=== PATIENT | female | born 1995 | race Caucasian/White ===

== ENCOUNTER → 2017-08-08 19:10 | Outpatient (CLI) | payer OTHER, SELFPAY ==
[2017-08-15 11:38] LABS: HPV Reflexed? NOT INDICATED
== END ==
PROVIDERS: Visit Provider Obstetrics & Gynecology
DX: Z12.4 Encounter for screening for malignant neoplasm of cervix (principal)
CPT/HCPCS: 88175; G0145

== ENCOUNTER → 2017-11-03 16:26 | Outpatient (CLI) | payer OTHER, SELFPAY ==
--- NOTE | 2017-11-03 16:52 | US_ITS ---
STUDY: ULTRASOUND OF THE FEMALE PELVIS - COMPLETE REASON FOR EXAM: Female, 22 years old. IRREG MENSES G/U OV CYST TECHNIQUE: Transabdominal and Transvaginal TECHNICAL QUALITY: Adequate. COMPARISON: None. FINDINGS: The uterus is anteverted and is in a midline position. The uterus measures 9.2 x 5.7 x 2.9 cm. Normal uterine cervix. The endometrium measures 5.9 mm in thickness, and is hyperechoic. There is no demonstrated endometrial mass. There is no demonstrated myometrial mass. I.U.D. - The patient does not have an I.U.D. The right ovary is visualized. The right ovary measures 2.4 x 1.5 x 0.8 cm. There is no right ovarian cyst or ovarian mass. There is no visualized right adnexal mass or complex lesion. There is normal arterial and normal venous vascularity. The left ovary is visualized. The left ovary measures 4.8 x 3.8 x 2.3 cm. Simple cyst of the left ovary measuring 3 x 2.5 x 2 cm. There is no visualized left adnexal mass or complex lesion. There is normal arterial and normal venous vascularity. There is no fluid in the cul-de-sac. The pre void volume of the bladder was 560 ml. Polycystic ovary disease: No. US/Pelvic (Non ) IMPRESSION: Simple left ovarian cyst. Electronically Signed: Hugo Denson MD at 20:46 EDT , Service support ,
--- NOTE | 2017-11-03 17:18 | US_ITS ---
STUDY: ULTRASOUND OF THE FEMALE PELVIS - COMPLETE REASON FOR EXAM: Female, 22 years old. IRREG MENSES G/U OV CYST TECHNIQUE: Transabdominal and Transvaginal TECHNICAL QUALITY: Adequate. COMPARISON: None. FINDINGS: The uterus is anteverted and is in a midline position. The uterus measures 9.2 x 5.7 x 2.9 cm. Normal uterine cervix. The endometrium measures 5.9 mm in thickness, and is hyperechoic. There is no demonstrated endometrial mass. There is no demonstrated myometrial mass. I.U.D. - The patient does not have an I.U.D. The right ovary is visualized. The right ovary measures 2.4 x 1.5 x 0.8 cm. There is no right ovarian cyst or ovarian mass. There is no visualized right adnexal mass or complex lesion. There is normal arterial and normal venous vascularity. The left ovary is visualized. The left ovary measures 4.8 x 3.8 x 2.3 cm. Simple cyst of the left ovary measuring 3 x 2.5 x 2 cm. There is no visualized left adnexal mass or complex lesion. There is normal arterial and normal venous vascularity. There is no fluid in the cul-de-sac. The pre void volume of the bladder was 560 ml. Polycystic ovary disease: No. US/Transvaginal Non- IMPRESSION: Simple left ovarian cyst. Electronically Signed: Hugo Denson MD at 20:46 EDT , Service support ,
== END ==
PROVIDERS: Visit Provider Obstetrics & Gynecology
DX: N92.4 Excessive bleeding in the premenopausal period (principal); N92.6 Irregular menstruation, unspecified
CPT/HCPCS: 76830; 76856; 93976

== ENCOUNTER → 2020-03-07 | Outpatient (CLI) | payer BC, SELFPAY ==
[2020-03-07 09:34] VITALS: BMI 33.7
[2020-03-09 07:07] LABS: Chlamydia By Nucleic Acid AMP Negative (Negative)
[2020-03-09 08:43] LABS: Gonococcus By Nucleic Acid AMP Negative (Negative)
== END | disposition home or self-care (01) ==
LOC: LABSPEC 12:43
PROVIDERS: Referring Provider Nurse Practitioner Women's Health; Visit Provider Nurse Practitioner Women's Health
DX: Z11.3 Encounter for screening for infections with a predominantly sexual mode of transmission (principal)
CPT/HCPCS: 87491; 87591

== ENCOUNTER 2020-08-17 15:46 | Outpatient (RCR) | payer BC, SELFPAY ==
[2020-03-07 09:34] VITALS: BMI 33.7
== END 2020-10-10 23:59 ==
LOC: IMMUN 15:46
PROVIDERS: Referring Provider Family Medicine; Visit Provider Family Medicine
DX: Z23 Encounter for immunization (principal)
CPT/HCPCS: 0001A; 0002A; 91300

== ENCOUNTER 2021-06-11 16:17 | Outpatient (CLI) | payer BC, SELFPAY ==
[2021-06-14 16:55] LABS: HPV Reflexed? NOT INDICATED
== END 2021-06-11 23:59 | disposition home or self-care (01) ==
LOC: LABSPEC 16:18
PROVIDERS: Visit Provider Nurse Practitioner Women's Health
DX: Z12.4 Encounter for screening for malignant neoplasm of cervix (principal); R30.0 Dysuria
CPT/HCPCS: 87086; 87088; 88175; G0145

== ENCOUNTER 2021-08-14 05:29 | Day surgery (SDC) | payer BC, SELFPAY ==
[2021-08-10 13:22] LABS: Hematocrit 40.8 % (37-47); Hemoglobin 13.5 g/dL (12.0-15.0); Mean Corp Hgb Conc 33.1 g/dL (32-36); Mean Corpuscular Hgb 30.1 pg (27.0-32.0); Mean Corpuscular Volume 91.1 fL (81-99); Mean Platelet Vol. 9.8 fl (6.2-12.0); Platelet Count 311 K/mm3 (150-450); RBC Distribution Width SD 43.5 fl (35.1-43.9); Red Blood Count 4.48 M/mm3 (4.2-5.4); White Blood Count 9.2 K/mm3 (4.4-11.0)
[2021-08-10 13:55] LABS: Magnesium 2.3 mg/dL (1.6-2.6)
--- NOTE | 2021-08-13 15:46 | HP.PCM_ITS ---
History and Physical Date of Admission: 08/14/21 Date of Service: 08/01/21 MR#:[id number]: KYM BORJAS RAIRep #:[id number]:[id number] Provider:Dr. Rachel Tracey, DOAge/Sex: 25/F Location:[facility] [place]Signed Intake Vital Signs 08/01/21 08:12 Height 5 ft 5 in Weight: 214 lb 4 oz BMI 35.6 BP 130/100 H Intake Visit Reasons: consult/consent Accounts Payable Clerk Required: No Is patient in pain?: No Allergies iodine Allergy (Intermediate, Verified 08/01/21 08:12) Hives Medications cyclobenzaprine 10 mg tablet 10 mg PO TID PRN #21 tab 09/21/20 [Rx Confirmed 08/01/21] ondansetron 4 mg disintegrating tablet 4 mg PO Q4H PRN #48 tab 09/26/20 [Rx Confirmed 08/01/21] etonogestrel 0.12 mg-ethinyl estradiol 0.015 mg/24 hr vaginal ring 1 vag ring VAGINAL .COMPLEX #3 ea 06/11/21 [Rx Confirmed 08/01/21] norethindrone acetate 5 mg tablet 5 mg PO .COMPLEX #30 tab 07/09/21 [Rx Confirmed 08/01/21] medroxyprogesterone 10 mg tablet 10 mg PO DAILY #30 tab 08/01/21 [Rx Confirmed 08/01/21] Post menopausal: No Patient : No : No PFSH Medical History Dysmenorrhea Endometriosis Surgical History H/O dilation and curettage H/O laparoscopy History of hysteroscopy S/P Social History household members: significant other and children number of children: 1 current occupational status: employed current occupation: customer service and field sales representative and [employer] history of recent travel: No sexually active: Yes Smoking Status: Former smoker Electronic Cigarette Use: with nicotine alcohol intake: current alcohol intake frequency: a few times a month substance use type: does not use what type of physical activity do you participate in: aerobics and weight training seatbelt use: always do you feel safe at home: Yes additional social history: single HPI consult/consent Details: KYM BORJAS is a 25 year old who presents for a pre-op exam. Details: KYM BORJAS is a 25 year old who presents for hysterectomy consult. She has a long history of menorrhagia and dysmenorrhea. She has a known history of endometriosis which was diagnosed via laparoscopy at an outside facility. Her last ultrasound 4 years ago showed a 9 cm uterus without fibroids. The patient states that she is completed with childbearing. Her first child was born 7 years ago. This child was born via section. She states that she has seen many plumbing engineering draftsperson and told her to just get and the pain will get better. She did end up trying this recently and the pain was so intense that she aborted the . Patient has tried IUDs control pills, rings, and injections for the pain. Pregancy History 3 Elective abortions 1 Hx Para 1 Spontaneous abortions 1 Hx # Term Pregnancies Ectopic pregnancies Hx # Pregnancies Multiple births # of living children 1 Past Pregnancies Del. Date Name GA/Weeks Outcome Route Bth Weight Gen Labor Lgth Anesthesia Del [facility] Provider FOB Unknown Benji 2013 ROS Const ROS Unobtainable: All systems reviewed & are unremarkable except as noted in H Resp Resp: Reports system reviewed and no additional complaints, except as documented; Denies cough GI GI: Reports as per HPI Psych Psych: Reports system reviewed and no additional complaints, except as documented Exam Const General: cooperative, healthy appearing, comfortable and no acute distress Resp Effort & Inspection: normal respiratory effort Skin General: no rashes or lesions noted Psych Appearance: grossly normal Speech and Movement: speech and movement normal Coding Level of Care Code Off vis,est,level 4 Diagnoses Dysmenorrhea N94.6 Endometriosis determined by laparoscopy N80.9 Assessment and Plan Assessment and Plan (1) Dysmenorrhea: Status: Acute (2) Endometriosis determined by laparoscopy: Status: Acute Comment: 2019 at [place], op report scanned in Plan - Dr. Rachel Tracey, DO: plan to total robotic hysterectomy, bilateral salpingectomy, cystoscopy on 08/14 After discussing the patient's diagnosis and treatment plan options, patient wishes to proceed with surgical management. I have discussed with the patient the risks, benefits, and alternatives of the procedure which include but are not limited to risks of anesthesia, bleeding, infection, possible damage to bowel, bladder, or surrounding vasculature which could lead to additional surgery to evaluate any complications. Patient agrees to procedure and wishes to proceed. ACOG/uptodate references given for additional information regarding procedure. Plan Details Other Medications: New: medroxyprogesterone 10 mg PO DAILY 30 tabs 0RF UPDATE- I have seen the patient and performed any clinically relevant updates to the history and physical exam. Rachel Tracey,
[2021-08-14] VITALS (11 sets, daily range): BP systolic 125–150; BP diastolic 88–105; PULSE 87–128; RESP 16–18; TEMP 36.3–37.1; O2SAT 98–100; BMI 36.3
[2021-08-14] MEDS: Lactated Ringers 1,000 ML 40 ML IV (06:00)
[2021-08-14 06:05] LABS: Internal QC Validated? YES +Cl - CLEAR BKGD; Pregnancy, Urine Negative Negative
[2021-08-14] MEDS: Gabapentin 600 MG Tablet PO (06:33)
[2021-08-14] MEDS: Acetaminophen 500 MG Tablet 1000 MG PO (06:33)
[2021-08-14] MEDS: Celecoxib 200 MG Capsule 400 MG PO (06:34)
--- NOTE | 2021-08-14 07:22 | PCM.DC ---
Discharge Instructions Diet Discharge Diet: No restrictions Activity May resume sexual activity in: 6 weeks Weight Bearing Status: Full weight bearing Dressing / Incision Call your doctor if your incision/area has: Continuous Slow Oozing, Sudden Increased Bleeding, Increased Pain/ Swelling, Increased Redness and Foul Smelling Discharge Call your doctor if you observe: Fever of 101 or Higher, Using more than 1 pad per hour, Shortness of breath, Chest pain and Uncontrolled pain Suture Line Care: Avoid Pulling/Pushing and Avoid Pinching/Bending Remove Dressing in: 1 week (if present) Cleanse incision/area with: Soap & Water and Keep Dressing Clean & Dry Follow Up Care Please Follow Up With: Rachel Tracey DO When: Call to make an appointment with your doctor for a postop visit in 2 and 6 weeks Test Results: Test results from this visit will be discussed in further detail at your follow-up appointment, if applicable. Discharge Plan Admission Primary Reason for Your Visit: Hysterectomy Attending Provider: Rachel Tracey Primary Care Provider: Care Physician,Ngoc Primary Discharge Orders/Prescriptions Prescriptions: New ibuprofen 800 mg tablet 800 mg PO Q8H PRN (Reason: pain) 7 Days Qty: 30 RF: 0 oxycodone-acetaminophen [Percocet] 5-325 mg tablet 1 tab PO Q4H PRN (Reason: pain) 7 Days Qty: 30 RF: 0 Continued loratadine [Claritin] 10 mg Tablet 10 mg PO DAILY RF: 0 ondansetron 4 mg tablet,disintegrating 4 mg PO Q4H PRN (Reason: nausea and vomiting with menses) Qty: 48 RF: 2 Discontinued naproxen sodium [Aleve] 220 mg Tablet 220 mg PO BID PRN (Reason: Pain) RF: 0 medroxyprogesterone [Provera] 10 mg tablet 10 mg PO DAILY RF: 0 Referrals / Follow Up: Care Physician,No Primary [Primary Care Provider] - Disposition Disposition (needs filled in before D/C Order can be placed): Home, Self Care
--- NOTE | 2021-08-14 07:30 | HYST_PTH ---
PATIENT: KYM BORJAS RAI LOC: [facility] [place] U#:[id number] AGE/SX: 25/F ROOM: RE08/14/[address]: Dr. Rachel Tracey DO : 1995 BED: DIS: 08/14/2021 SPEC #: [id number] RECD: 08/14/21 11:07 STATUS: BRIDGETTE ULISES #: [id number] PARISA: 08/14/21 07:[address]: Rachel Tracey DEPT: SURGICAL PATHOLOGY RECD BY: Rosalva Anderson ENTERED: 08/14/21 12:26 SP TYPE: HYSTERECT OTHR DR: No Primary Care Phys Tissues: Uterus, NOS Procedures: Surgery Specimen Level V HEADER OPERATION: ERAS, total robotic hysterectomy, bilateral salpingectomy PRE-OP DIAGNOSIS: Dysmenorrhea, endometriosis TISSUE SUBMITTED: Uterus, cervix, bilateral fallopian tubes MICROSCOPIC DIAGNOSIS Uterus, cervix, bilateral fallopian tubes, hysterectomy and bilateral salpingectomy: Cervix ? mild chronic inflammation. Endometrium ? proliferative endometrium. Myometrium - no pathologic diagnosis. Bilateral fallopian tubes - no pathologic diagnosis. SJ:jessie 08/15/2021 MICROSCOPIC DESCRIPTION Slides are reviewed. GROSS DESCRIPTION Received in fixative is one container labeled with the patient's name and designated uterus. The specimen consists of a uterus with attached cervix and attached right and left fallopian tubes. The uterus with cervix measures 9.4 x 5.5 x 3.8 cm and weighs 110 gm. The ectocervix is grossly unremarkable. The cervical os is oval in contour. The endocervical canal measures 3.6 cm in length and is grossly unremarkable. The triangular endometrial cavity measures 4 x 2.5 cm. The velvety, light cedeno endometrium measures up to 0.2 cm in thickness. The myometrium measures 2 cm in average thickness and is free of mass lesions. The right and left fallopian tubes are similar in appearance with average lengths of 6 cm and average diameter of 0.5 cm and both containing normal fimbriated ends. [facility] sections are submitted in eight cassettes as follows: 1 - anterior cervix, 2 - posterior cervix, 3 & 4 - anterior uterine wall, 5 & 6 - posterior uterine wall, 7 - right fallopian tube, 8 - left fallopian tube. / AM:jessie 08/14/2021 TC:3 CPT: 92848
[2021-08-14] MEDS: Cefazolin 2 GM in 0.9% Normal Saline 100 ML IV (07:34)
[2021-08-14] MEDS: Bupivacaine 0.25% 30 ML Vial (08:30)
[2021-08-14] MEDS: Ondansetron 4 MG/2 ML Vial IV (09:00)
[2021-08-14] MEDS: Lactated Ringers 1,000 ML 100 ML IV (09:01)
--- NOTE | 2021-08-14 09:15 | OP.PCM_ITS ---
Problems Associated Problem List Diagnoses (1) Endometriosis determined by laparoscopy: (2) Dysmenorrhea: Report of Operation Date of Procedure: 08/14/21 Pre-Operative Diagnosis: Dysmenorrhea, endometriosis, failed conservative therapy Post-Operative Diagnosis: Dysmenorrhea, endometriosis, failed conservative therapy, possible intersticial cystitis Surgery/Procedure Performed:: Total robotic hysterectomy, bilateral sa lpingectomy, cystoscopy Description of Surgical Findings:: Anesthesia: General endotracheal intubation Estimated blood loss: 70cc Urine output:700cc Fluids: 1400cc Drains: None Implanted material: None Complications: None Findings: 10 cm size uterus, normal appearing ovaries and tubes. On exploration of the abdominal cavity the uterus, adnexa, bowel, and liver were found to be normal. There was noted scar tissue over the lower uterine segment/bladder and powder burn faustin on the bladder and posterior cul-de-sac consistent with endometriosis. Cystoscopy showed no evidence of leaking at approximately 250 cc of normal saline, positive ureteral orifices and jet flow are seen and no suture material was appreciated in the bladder. The bladder showed signs of possible interstitial cystitis as there were tiny areas of bleeding capillaries when the fluid was drained out of the bladder Specimens removed: Uterus and cervix, Bilateral fallopian tubes Surgeon: Rachel Tracey evp [place]: Jessica Hdz Type of Anesthesia: General Anesthesiologist: Travis Alarcon Specimen's removed: Uterus, cervix, bilateral fallopian tubes Drains: none Estimated Blood Loss (mL): 70cc Fluids Replaced: 1400cc Description of Procedure: Reason for surgery: This is a 25-year-old G2, P1 who presented to my office with history of pelvic pain that was refractory to conservative therapy and control. She strongly declined desire for further child bearing. The planned procedure is for a robotic hysterectomy the risks benefits and alternatives were discussed with the patient the patient had a clear understanding of the procedure and a consent form was signed. Procedure: The patient was placed in the dorsal low lithotomy position and prepped and draped in the normal sterile fashion both abdominally and in the perineum. Her legs were placed in stirrups a Barrett catheter was inserted into the urethra without difficulty. A weighted speculum was placed in the vagina and a single- tooth tenaculum was used to grasp the anterior lip of the cervix. A uterine manipulator was inserted through the cervix without complication. It was then tied into place at the 2 and 10:00 locations on the cervix. Gloves were changed and attention was turned towards the abdomen. Approximately 23 cm above the pubic symphysis in the midline, and after Marcaine injection, a [8] mm incision was made. An 8 mm trocar was inserted through the laparoscope, then inserted into the abdomen under direct visualization using the laparoscope. Good abdominal placement was noted and no complications were appreciated. An air seal device was utilized to create pneumoperitoneum. At 12 cm lateral to the midline on the left and right sides 8 mm accessory ports were placed. Next a left upper quadrant 8 mm acute care certified nursing assistant port site was placed. The patient was placed in steep Trendelenburg position. The robot was docked. The hysterectomy was initiated first by taking down the round ligament on each side using the vessel sealer device. the broad ligament was then and taken down using the vessel sealer device. Next the bladder flap was taken down without complication. This was done using monopolar cautery to the level of the cervical vaginal junction. After the bladder flap was created, uterine vessels were then isolated and cauterized using the vessel sealer device and EndoShears. At this point the uterine vessels were taken down further starting from the ascending branch, dissecting along the edges of the cervix to the level of the cervical vaginal junction with hemostasis appreciated. The cervical vaginal junction was then using monopolar cautery in a circumferential pattern across the superior aspect of the cervix. The specimen was delivered through the vagina and sent to pathology. The remaining vaginal cuff was then closed using a V- lock suture in 2 layers. This was performed in a running technique. Excellent hemostasis was obtained and good closure was noted. Irrigation was then performed. All operative sites were noted to be hemostatic. A cystoscopy was performed with a 70 degree cystoscope through the urethra into the bladder without complication. The bladder was instilled with approximately 250 cc of normal saline. Intraoperative images were made. Ureteral orifices and jets were identified. No suture material was appreciated in the bladder. The bladder was then drained and cystoscope was removed. The abdominal cavity was again examined using the laparoscope after the robot was undocked. All operative sites were noted to be hemostatic. The trochars were removed under direct visualization without complication and pneumoperitoneum was reduced. At this point the skin was then closed using 4-0 Monocryl subcuticular stitch and sealed with surgical glue. The patient tolerated the procedure well sponge lap and needle counts were correct x2 the pa tient was taken to the recovery room in stable condition. Grafts/Implants Used: none Complications none Admit VTE Documentation VTE Present on Admission: Yes VTE Mechan Device Prophylaxis: SCD's VTE Pharm Prophylaxis ordered?: No Reason prophylaxis not ordered:: Treatment Not Indicated Multi Select Codes Urinary/Genital Urinary/Genital CPT Codes: 83006 TLH+BS/O <250gr uterus
[2021-08-14] MEDS: Ondansetron 4 MG/2 ML Vial IM (10:27)
--- NOTE | 2021-08-14 12:12 | SUR.PHASEII ---
Abdominal binder placed on patient per Dr. Vora verbal order.
== END 2021-08-14 23:59 | disposition home or self-care (01) ==
LOC: SDC 05:31 → AC 05:32
PROVIDERS: Anesthesiology; Referring Provider Obstetrics & Gynecology; Visit Provider Obstetrics & Gynecology
PROC: 0UT90ZZ Resection of Uterus, Open Approach (ICD-10-PCS; CPT 58571; principal; 2021-08-14 07:10)
DX: N94.6 Dysmenorrhea, unspecified (principal); Z87.891 Personal history of nicotine dependence; N80.9 Endometriosis, unspecified; I10 Essential (primary) hypertension
CPT/HCPCS: 58571; S2900; 00840; 36415; 81025; 83735; 85027; 86850; 86900; 86901; 88307; J7120; A4216; J2405; J3475

== ENCOUNTER → 2022-07-27 | Outpatient (CLI) | payer BC, SELFPAY ==
[2022-07-27 08:49] LABS: Absolute Lymphocyte Count 3.09 X10^3/uL (0.83-4.51); Absolute Neutrophil Count 5.7 X10^3/uL (2.0-7.7); Basophil# 0.09 X10^3/uL; Basophil% 0.9 % (0-1); Eosinophil# 0.45 X10^3/uL; Eosinophils% 4.4 % (0-5); Hemoglobin 14.7 g/dL (12.0-15.0); Lymphocyte # 3.09 X10^3/ul (0.83-4.51); Lymphocyte % 30.2 % (19-41); Mean Corp Hgb Conc 33.4 g/dL (32-36); Mean Corpuscular Hgb 30.6 pg (27.0-32.0); Mean Corpuscular Volume 91.7 fL (81-99); Mean Platelet Vol. 9.9 fl (6.2-12.0); Monocyte# 0.85 X10^3/uL; Monocyte% 8.3 % (0-10); NRBC Flagged by Analyzer 0 % (0-5); Neutrophil # 5.73 X10^3/uL (2.7-7.7); Platelet Count 352 K/mm3 (150-450); RBC Distribution Width CV 12.8 % (11.6-14.6); RBC Distribution Width SD 43.8 fl (35.1-43.9); White Blood Count 10.2 K/mm3 (4.4-11.0)
[2022-07-27 09:10] LABS: ALB/GLOB Ratio 0.9 RATIO (0.9-2.4); AST(SGOT) 26 U/L (15-37); Alanine Aminotransfer ALT/SGPT 70 U/L (13-56); Albumin, Serum 3.8 g/dL (3.2-5.0); Alkaline Phosphatase 94 U/L (45-117); Anion Gap 5 (5-15); BUN 10 mg/dL (7-18); BUN/Creat Ratio 13.2 RATIO (10-20); Calcium,Total 8.9 mg/dL (8.5-10.1); Chloride 105 mmol/L (98-107); Cholesterol 180 mg/dL (200); Creatinine, Serum 0.76 mg/dL (0.55-1.02); EST Glomerular Filtration Rate 96 mL/min (>60); Est Glom Filt Rate - Afr Amer 116 mL/min (>60); Globulin 4.1 g/dL (2.2-4.2); Glucose 103 mg/dL (74-106); High Density Lipoprotein 46 mg/dL; Potassium 3.9 mmol/L (3.5-5.1); Protein, Total 7.9 g/dL (6.4-8.2); Sodium Level 136 mmol/L (136-145); Thyroid Stim Hormone (TSH) 2.48 uIU/mL (0.358-3.74); Triglycerides 97 mg/dL; Very Low Density Lipoprotein 19 mg/dL (5-40)
== END | disposition home or self-care (01) ==
LOC: LAB 08:25
PROVIDERS: PCP Internal Medicine; Visit Provider Internal Medicine
DX: I10 Essential (primary) hypertension (principal)
CPT/HCPCS: 36415; 80050; 80053; 80061; 84443; 85025

== ENCOUNTER → 2022-07-29 | Outpatient (CLI) | payer BC, SELFPAY ==
--- NOTE | 2022-07-29 12:41 | US_ITS ---
INDICATION: enalrged thyroid EXAMINATION: Ultrasound US Thyroid (eg thyroid, parathyroid, parotid) TECHNIQUE: Benitez scale and color doppler imaging was performed of the thyroid gland. COMPARISON: None. FINDINGS: RIGHT THYROID LOBE: 5.1 x 2.1 x 1.6 cm. Heterogeneous thyroid lobe with multiple nodules as below. 7 x 5 x 3 mm solid, isoechoic nodule, wider than tall with smooth margins and no echogenic foci; BI-RADS category 3, mildly suspicious nodule. 9 x 6 x 8 mm solid, very hypoechoic nodule, wider than tall with smooth margins and no echogenic foci,: BI-RADS Category 4, moderately suspicious nodule. 4 x 2 x 3 mm cystic, anechoic nodule, wider than tall with smooth margins and no echogenic foci; BI-RADS Category 1 benign nodule. 5 x 4 x 4 mm anechoic cyst; BI-RADS Category 1 nodule. LEFT THYROID LOBE: 5.0 x 1.8 x 1.9 cm. Diffusely heterogeneous thyroid lobe with nodules as below. [ 15 x 9 x 11 mm solid, isoechoic, wider than tall, ill-defined nodule without echogenic foci; BI-RADS Category 3, mildly suspicious nodule. 9 x 4 x 7 mm solid, hypoechoic nodule, wider than tall with smooth margins and no echogenic foci corresponds to a BI-RADS Category 4 moderately suspicious nodule. This nodule may be posterior to the thyroid lobe. Elongated, mildly lobulated hypoechoic border along the anterior inferior left thyroid lobe measuring up to 3 mm in thickness, atypical morphology for a nodule. ISTHMUS: 4 mm in thickness. No thyroid nodules are present. US/Thyroid IMPRESSION: Diffusely heterogeneous thyroid gland with multiple nodules as described above. 15 mm mildly suspicious nodule in the left thyroid lobe is criteria for follow-up imaging in one year. Irregular peripheral hypodensity inferior left thyroid lobe without definite nodule. Similar, but more nodular area in the posterior left inferior thyroid lobe. Normal size thyroid gland. Electronically Signed: Jalen Abarca DO at 23:25 EDT ,
== END | disposition home or self-care (01) ==
PROVIDERS: PCP Internal Medicine; Referring Provider Internal Medicine; Visit Provider Internal Medicine
DX: E04.9 Nontoxic goiter, unspecified (principal)
CPT/HCPCS: 76536

== ENCOUNTER → 2023-01-09 | Outpatient (CLI) | payer OTHER, SELFPAY | END | disposition home or self-care (01) | LOC: LABSPEC 15:01 | PROVIDERS: PCP Internal Medicine; Referring Provider Advanced Practice Midwife; Visit Provider Advanced Practice Midwife | DX: N89.8 Other specified noninflammatory disorders of vagina (principal) | CPT/HCPCS: 87070; 87205 ==

== ENCOUNTER → 2023-10-28 | Outpatient (CLI) | payer OTHER, SELFPAY | END | disposition home or self-care (01) | PROVIDERS: PCP Internal Medicine; Referring Provider Physician Assistant; Visit Provider Physician Assistant | DX: R30.0 Dysuria (principal) | CPT/HCPCS: 87086; 87088 ==

== ENCOUNTER → 2024-02-16 | Outpatient (CLI) | payer OTHER, SELFPAY ==
[2024-02-16 12:30] LABS: Absolute Lymphocyte Count 1.41 X10^3/uL (0.83-4.51); Absolute Neutrophil Count 5.6 X10^3/uL (2.0-7.7); Basophil# 0.08 X10^3/uL; Eosinophil# 0.19 X10^3/uL; Eosinophils% 2.5 % (0-5); Hematocrit 44.3 % (37-47); Hemoglobin 14.7 g/dL (12.0-15.0); Lymphocyte # 1.41 X10^3/ul (0.83-4.51); Lymphocyte % 18.2 % (19-41); Mean Corp Hgb Conc 33.2 g/dL (32-36); Mean Corpuscular Hgb 31.6 pg (27.0-32.0); Mean Corpuscular Volume 95.3 fL (81-99); Monocyte# 0.46 X10^3/uL; NRBC Flagged by Analyzer 0 % (0-5); Neutrophil # 5.55 X10^3/uL (2.7-7.7); Neutrophil % 71.8 % (47-70); Platelet Count 357 K/mm3 (150-450); RBC Distribution Width CV 12.6 % (11.6-14.6); Red Blood Count 4.65 M/mm3 (4.2-5.4); White Blood Count 7.7 K/mm3 (4.4-11.0)
[2024-02-16 13:06] LABS: ALB/GLOB Ratio 0.9 RATIO (0.9-2.4); AST(SGOT) 27 U/L (15-37); Alanine Aminotransfer ALT/SGPT 50 U/L (13-56); Albumin, Serum 3.8 g/dL (3.2-5.0); Alkaline Phosphatase 92 U/L (45-117); Anion Gap 6 (5-15); BUN 12 mg/dL (7-18); BUN/Creat Ratio 14.7 RATIO (10-20); Calcium,Total 9.6 mg/dL (8.5-10.1); Chloride 107 mmol/L (98-107); Creatinine, Serum 0.82 mg/dL (0.55-1.02); EST Glomerular Filtration Rate 87 mL/min (>60); Est Glom Filt Rate - Afr Amer 106 mL/min (>60); Globulin 4.1 g/dL (2.2-4.2); Glucose 127 mg/dL (74-106); Potassium 3.4 mmol/L (3.5-5.1); Protein, Total 7.9 g/dL (6.4-8.2); Sodium Level 139 mmol/L (136-145)
== END | disposition home or self-care (01) ==
LOC: BIMLAB 08:29
PROVIDERS: PCP Internal Medicine; Referring Provider Internal Medicine; Visit Provider Internal Medicine
DX: I10 Essential (primary) hypertension (principal); E04.9 Nontoxic goiter, unspecified
CPT/HCPCS: 36415; 80053; 84443; 85025

== ENCOUNTER 2024-05-21 09:46 | Emergency (ER) | payer OTHER, SELFPAY ==
[2024-05-21 09:46] VITALS: BP 166/119; PULSE 114; RESP 22; TEMP 36.5; O2SAT 91; BMI 34.3
[2024-05-21 09:55] VITALS: BP 166/119; PULSE 114; RESP 22; TEMP 36.5; O2SAT 91
--- NOTE | 2024-05-21 10:45 | ED.VIS.DYS ---
HPI History of Present Illness Chief Complaint: Shortness of Breath Narrative Narrative: Chief complaint and HPI: Flulike symptoms. 28-year-old female with past medical history of partial hysterectomy, HTN presents for evaluation of flulike symptoms. Patient states at the beginning of April she was diagnosed with strep pharyngitis. She was treated with antibiotics. Patient states her sore throat has improved. Patient states that she developed cough and congestion. She was seen by telehealth and diagnosed with bronchitis. She states she is currently on prednisone and cough medicine. Patient states she feels like she is not improving. She endorses congestion, cough, body aches, headache. She denies any fevers. Associated symptom is posttussis emesis. She has been taking Tylenol. Denies any shortness of breath, chest pain, abdominal pain, nausea. Review of systems: See HPI Medications: As listed on the chart Allergies: As listed on the chart PFSH: Per chart Vital signs: As listed on the chart. Reviewed. Physical exam: Gen: A&O x3, NAD Head: Normocephalic, atraumatic Eyes: No sclera icterus, conjunctiva clear, PERRL, EOMI ENT: Moist mucous membranes Neck: Trachea midline, No JVD, Full ROM, No meningismus CV: RRR, no murmurs, no peripheral edema Resp: Lungs CTA BL, mild intermittent expiratory wheeze, + dry/harsh cough GI: Abd soft, non-distended, non-tender, no r/r/g Musc: Full ROM, no deformity Skin: Warm, dry, no rash Neuro: Alert, oriented, grossly intact, sensation intact Psych: Cooperative, appropriate mood and affect [facility] Medical History Wears glasses Back pain Smoker Hypertension Dysmenorrhea Endometriosis determined by laparoscopy Home Medications ?Medication ?Instructions ?Recorded ?Last Taken ?Type cranberry 500 mg capsule 500 mg PO BID PRN 10/28/23 Unknown History hydroxyzine HCl 25 mg tablet 25 mg PO TID PRN anxiety #30 tabs 02/16/24 Unknown Rx potassium chloride 20 mEq 40 meq (2 x 20 mEq) PO ONCE #2 tabs 02/16/24 Unknown Rx tablet,extended release(part/cryst) lisinopril 5 mg tablet 5 mg PO QDAY 03/25/24 Unknown History albuterol sulfate 90 mcg/actuation 2 puff inhalation Q4H PRN PRN 05/21/24 Unknown Rx aerosol inhaler Wheezing 30 days #8.5 grams azithromycin 250 mg tablet See Rx Instructions PO .COMPLEX #6 05/21/24 Unknown Rx tabs Allergy/AdvReac Type Severity Reaction Status Date / Time iodine Allergy Intermediate Hives Verified 05/06/24 12:18 Family History Grandmother Hypertension CVA (cerebral vascular accident) Grandfather Skin cancer Mother Hyperlipidemia Surgical History History of robot-assisted laparoscopic hysterectomy (~08/14/21) H/O dilation and curettage History of hysteroscopy H/O laparoscopy S/P Social History household members: children number of children: 1 current occupational status: employed current occupation: [employer] history of recent travel: No sexually active: Yes Smoking Status: Current some day smoker tobacco type: e-cigarettes Electronic Cigarette Use: with nicotine alcohol intake: current alcohol intake frequency: a few times a month substance use type: does not use what type of physical activity do you participate in: aerobics and weight training seatbelt use: always do you feel safe at home: Yes additional social history: single EXAM Physical Exam Const Vital Signs: 05/21/24 09:46 05/21/24 09:55 05/21/24 10:56 Temperature 97.7 F L 97.7 F L Temperature Source Temporal Oral Pulse Rate 114 H 114 H 100 Respiratory Rate 22 H 22 H 18 Respiratory Pattern Normal Blood Pressure 166/119 H 166/119 H Blood Pressure Mean 134 134 Pulse Ox 91 91 Oxygen Delivery Method Room Air Room Air 05/21/24 11:46 Temperature Temperature Source Pulse Rate 91 Respiratory Rate 18 Respiratory Pattern Blood Pressure 145/108 H Blood Pressure Mean 120 Pulse Ox 98 Oxygen Delivery Method Room Air MDM MDM MDM Narrative Medical decision making narrative: 28-year-old female with past medical history of partial hysterectomy, HTN presents for evaluation of flulike symptoms. Differential diagnosis includes but is not limited to viral illness, bronchitis, pneumonia, influenza. Patient has mild expiratory intermittent wheezing on exam. DuoNeb and Toradol ordered. Will obtain viral testing and chest x-ray. I do not think any laboratory workup is needed at this time. Chest x-ray was personally reviewed by me, ED physician. No pneumonia, effusion, cardiomegaly, pneumothorax. COVID, flu, RSV negative. On reevaluation, patient is coughing less. Her wheezing has improved. Patient is stable to discharge home. I suspect bronchitis given the length of her symptoms. Will prescribe her an albuterol inhaler as needed for wheezing. A Z-Naseem for bronchitis. Follow-up with PCP. She confirmed understand the plan. Impression: 1. Bronchitis with intermittent wheezing Radiography Diagnostic Testing: Clinical Impression(s) from Imaging Studies Chest X-Ray 05/21/24 10:49 IMPRESSION: Normal x-ray examination of the chest. Electronically Signed: Pedro Purvis MD at 11:07 EST Reading Location ID and State: [address] [place] [address] , Service support , Discharge Plan Triage Chief Complaint: Shortness of Breath ED Provider: Jose Luque Dx/Rx/DC Orders Clinical Impression: Bronchitis Instructions: ED Bronchitis with Wheezing (Adult) Prescriptions: New azithromycin 250 mg tablet See Rx Instructions .ROUTE .COMPLEX Qty: 6 0RF Rx Instructions: For 250 mg dose pack: take 500 mg today (day 1), then 250 mg for 4 days (days 2-5) albuterol sulfate 90 mcg/actuation HFA aerosol inhaler 2 puff inhalation Q4H PRN PRN (Reason: Wheezing) 30 Days Qty: 8.5 0RF No Action cranberry 500 mg capsule 500 mg PO BID PRN Rx Instructions: administer with meals hydroxyzine HCl 25 mg tablet 25 mg PO TID PRN (Reason: anxiety) Qty: 30 0RF lisinopril 5 mg tablet 5 mg PO QDAY potassium chloride 20 mEq tablet,ER particles/crystals 40 meq PO ONCE Qty: 2 0RF Primary Care Provider: Radha Casillas Referrals: Radha Casillas MD [Primary Care Provider] - 3-5 Days Print Language: Filipino Disposition Disposition: Home, Self Care
--- NOTE | 2024-05-21 10:49 | RAD_ITS ---
STUDY: X-RAY CHEST REASON FOR EXAM: Female, 28 years old. Cough TECHNIQUE: PA and lateral views of the chest. COMPARISON: None. FINDINGS: The lungs are clear and expanded. There is no demonstrated pleural abnormality. Normal size heart. Normal mediastinum and osmin. Normal visualized pulmonary arteries. Normal visualized aortic arch and descending thoracic aorta. Normal visualized thoracic spine. Normal visualized ribs, clavicles, and shoulders. There is no demonstrated abnormality of the visualized soft tissue structures of the upper abdomen. RAD/Chest PA and Lateral IMPRESSION: Normal x-ray examination of the chest. Electronically Signed: Pedro Purvis MD at 11:07 [facility] ,
[2024-05-21] MEDS: Ipratropium/Albuterol Sulfate 3 ML AMPUL.NEB INHALATION (10:55)
[2024-05-21 10:56] VITALS: PULSE 100; RESP 18
[2024-05-21] MEDS: Ketorolac 30 MG/ML Syringe IM (11:01)
[2024-05-21 11:46] VITALS: BP 145/108; PULSE 91; RESP 18; O2SAT 98
[2024-05-21 12:21] VITALS: BP 129/88; PULSE 86; RESP 17; TEMP 36.3; O2SAT 98
== END 2024-05-21 12:21 | disposition home or self-care (01) ==
PROVIDERS: Emergency Provider Surgery; PCP Internal Medicine; Visit Provider Surgery
DX: J40 Bronchitis, not specified as acute or chronic (principal); F17.210 Nicotine dependence, cigarettes, uncomplicated; I10 Essential (primary) hypertension; R06.2 Wheezing; Z79.52 Long term (current) use of systemic steroids
CPT/HCPCS: 71046; 87631; 94640; 96372; 99282

== ENCOUNTER → 2024-05-26 | Outpatient (CLI) | payer OTHER, SELFPAY | END | disposition home or self-care (01) | LOC: LABSPEC 10:21 | PROVIDERS: PCP Internal Medicine; Referring Provider Physician Assistant; Visit Provider Physician Assistant | DX: J02.9 Acute pharyngitis, unspecified (principal) | CPT/HCPCS: 87070 ==